=== PATIENT | male | born 1945 | race Caucasian/White ===

== ENCOUNTER 2018-04-07 08:11 | Emergency (ER) | payer OTHER ==
[~2018-04-07] VITALS: Ht 165.1 cm; Wt 52.6 kg
[2018-04-07] MEDS ORDERED: ZINC SULFATE 2220 M1 PER TUBE (08:27)
[2018-04-07] MEDS ORDERED: LIPITOR10 MG PER TUBE (08:28)
[2018-04-07] MEDS ORDERED: AUGMENTIN400 MG/53 PER TUBE (08:31)
[2018-04-07] MEDS ORDERED: OMEPRAZOLE20 M2 PER TUBE (08:31)
[2018-04-07] MEDS ORDERED: LOPRESSOR50 PER TUBE (08:32)
[2018-04-07] MEDS ORDERED: CEROVITE ADVAN1 EACH PER TUBE (08:32)
[2018-04-07 09:45] VITALS: BP 139/43
== END 2018-04-07 09:46 | disposition home or self-care (01) ==
LOC: M.ERS 08:11
DX: K94.20 Gastrostomy complication, unspecified (principal)

== ENCOUNTER 2018-04-22 18:19 | Observation (INO) | payer OTHER ==
[~2018-04-22] VITALS: Ht 172.7 cm; Wt 55.3 kg
--- NOTE | ~2018-04-22 | CON ---
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 The patient reports he has had dysphagia and is unable to keep secretions down. He uses the PEG tube for nutrition. The tube was initially placed in December, although the patient is unsure what kind of tube it is. The patient reports mild oozing of blood from the PEG tube site. He denies any significant abdominal pain, nausea, vomiting or diarrhea. PEG tube appears to have been placed back in 12/2017. PAST MEDICAL HISTORY: Squamous cell cancer of the tongue, COPD, AFib, history of bladder cancer. PAST SURGICAL HISTORY: Oropharyngeal surgery for SCC of the tongue and tube placement. SOCIAL HISTORY: The patient quit smoking more than one year back. He reports daily alcohol use and takes about 1 drink per day, denies recreational drug use. REVIEW OF SYSTEMS: Negative except for what was mentioned in the HPI. PHYSICAL EXAMINATION: VITAL SIGNS: Temperature 37.7, pulse rate 72, respirations 16, blood pressure 129/59, pulse ox 95%. GENERAL: The patient is alert, awake, oriented x 3. HEENT: Pupils are equal, round, reactive to light and accommodation. Mucous membranes appear very dry. The patient is drooling from his mouth, appears cachectic. HEART: Irregularly irregular rhythm. LUNGS: Clear to auscultation bilaterally. ABDOMEN: Soft. There appears to be a small defect in the anterior wall of the abdomen corresponding to the previously placed PEG tube placement. The PEG tube site appears to have completely closed by this time, very small amount of red blood is seen in that area. There is no tenderness or guarding or rigidity. EXTREMITIES: Warm, well perfused. There is no edema. LABORATORY DATA: Hemoglobin 11.3, hematocrit 35.1, platelet count 187, WBC count 6.8. Sodium 140, potassium 4.1, chloride 108, bicarbonate 28, BUN 31, creatinine 0.9. ASSESSMENT AND PLAN: A pleasant 73-year-old gentleman [place] [address] CONSULTATION Name: CHACHO CORMIER Wilber IV Room: [address] B[place]y Bragg#: [id number] Admission: 04/22/18 Attend Phys: eJsus Gonzalez MD Discharge: 04/26/18 Date of : 49 Report #: [id number] of oropharyngeal squamous cell cancer who is presenting for evaluation of dislodged PEG tube. The PEG tube has been gone for more than 24 hours and thus the PEG tube site appears to be completely closed at this time. The patient will need a brand new PEG tube placement. We will attempt endoscopically to place a PEG tube on Wednesday; however, this may be difficult because of his prior history of surgery as well as radiation therapy, which can cause narrowing of the oropharyngeal area. Thank you for this consult. By: [id number] [id number] Boyd MD /nt
--- NOTE | ~2018-04-22 | CON ---
[address] [address] CONSULTATION Name: CHACHO CORMIER IV Room: [address] Betsy Bragg#: [id number] Admission: 04/22/18 Attend Phys: Jesus Gonzalez MD Discharge: 04/26/18 Date of : 49 Report #: [id number] THIS REPORT FOR: //name// CC: Jesus AMOR DATE OF SERVICE: 04/24/2018 HISTORY OF PRESENT ILLNESS: This is a pleasant 73-year-old male with a squamous cell cancer of the back of the tongue who was diagnosed and treated at , was presented for dislodgement of his PEG tube. The patient was initially diagnosed about 5 months back and had surgery. Prior to that, he had a PEG tube placed to assist with enteral nutrition. The patient also received radiation to the head and neck and currently is mostly edentulous and does not take anything p.o. because of risk of aspiration. The patient reports his tube fell out last evening and he presented to the hospital several hours later. The patient denies any abdominal pain or bleeding around the PEG site. He denies having the PEG tube taken out in the past. PAST MEDICAL HISTORY: SCC of the tongue, COPD, atrial fibrillation, history of bladder cancer. PAST SURGICAL HISTORY: Head and neck surgery for the SCC. SOCIAL HISTORY: The patient has a [id number] smoking history, but he quit about 1 year back. The patient also reports daily alcohol use. He drinks about 1-2 drinks per day and denies any recreational drug use. FAMILY HISTORY: There is no family history of esophageal, gastric, or colonic or upper respiratory tract malignancies. REVIEW OF SYSTEMS: Negative except for what was mentioned in the HPI. PHYSICAL EXAMINATION: VITAL SIGNS: Temperature 37.0, pulse rate 88, respirations 17, blood pressure 130/58. GENERAL: The patient is alert, awake, oriented x 3. HEENT: Pupils are equal, round, reactive to light and accommodation. Mucous membranes appear dry. The patient is edentulous. Thick secretions covered most of his oropharynx. LUNGS: Clear to auscultation bilaterally. CARDIOVASCULAR: Irregularly irregular. ABDOMEN: Soft. The PEG tube site appears to have been completely closed. Very small amount of dried blood is there at the site at this point. No tenderness or guarding. EXTREMITIES: Warm, well perfused[place] [address] CONSULTATION Name: CASACHACHO IV Room: [address]#: [id number] Admission: 04/22/18 Attend Phys: Jesus Gonzalez MD Discharge: 04/26/18 Date of : 49 Report #: [id number] LABORATORY DATA: Hemoglobin 11.3, hematocrit 35.1, platelet count 187. Sodium 139, potassium 3.7, chloride 106, bicarbonate 23. Total bilirubin 0.4, AST 41, ALT 113, alkaline phosphatase 91. Abdomen and pelvis CT: This demonstrates right kidney mass concerning for malignancy, complex anterolateral right kidney mass measuring 3.2 x 3.1 cm, old compression fractures, left adrenal mass, gastric wall thickening. ASSESSMENT AND PLAN: Pleasant 73-year-old gentleman with past medical history of oropharyngeal cancer status post surgery, radiation therapy who previously had a percutaneous endoscopic gastrostomy tube placed to assist with enteral nutrition. The patient has severe dysphagia and takes most of his nutrition through his percutaneous endoscopic gastrostomy tube and needs it for nutrition. The patient is unable to tell us if he had initial percutaneous endoscopic gastrostomy tube placed via Gastroenterology or Radiology. We will attempt to place endoscopically the percutaneous endoscopic gastrostomy tube. However, patients with oropharyngeal cancer frequently have stenosis of the upper respiratory tract due to radiation and this may interfere with passage of the scope or the percutaneous endoscopic gastrostomy tube. We can have Interventional Radiology place the tube if we are unable to place the tube endoscopically. By: 1733 [id number] Boyd MD /andre
[~2018-04-22 18:19] MED LIST: AUGMENTIN400 MG/53 PER TUBE; CEROVITE ADVAN1 EACH PER TUBE; LIPITOR10 MG PER TUBE; LOPRESSOR50 PER TUBE; OMEPRAZOLE20 M2 PER TUBE; ZINC SULFATE 2220 M1 PER TUBE
[2018-04-22 18:20] VITALS: BP 118/70
[2018-04-22] MEDS ORDERED: LOPRESSOR50 PO (18:28)
[2018-04-22] MEDS ORDERED: ZINC SULFATE 2220 MG PER TUBE (18:29)
[2018-04-22] MEDS ORDERED: OMEPRAZOLE 20 M20 M1 PO (18:29)
[2018-04-22] MEDS ORDERED: AMOXIL 875 MG875 M1 PER TUBE (18:32)
--- NOTE | 2018-04-22 18:39 | NUR ---
G TUBE DISLODGED AND OUT
[2018-04-22 19:51] LABS: HEMATOCRIT 35.1 % (42.0-52.0); HEMOGLOBIN 11.3 gm/dL (14.0-18.0); MCH 31.2 pg (26.0-34.0); MCHC 32.3 g/dL (28.0-37.0); MCV 96.5 fL (80.0-100.0); MPV 9.4 fl. (7.2-11.1); NUCLEATED RBCS 0 /100WBC; PLATELET COUNT* 187 thou/uL (150-400); RBC 3.64 mil/uL (4.50-6.00); RDW-CV 16.5 % (10.5-14.5); WBC 6.8 thou/uL (4.0-11.0)
[2018-04-22 20:07] LABS: CALCIUM 8.5 mg/dL (8.5-10.1); POTASSIUM 4.5 mmol/L (3.5-5.1)
[2018-04-22 20:08] LABS: APTT 29.6 Seconds (25.0-31.3); INR 1.1; PROTIME 10.9 Seconds (9.20-11.50)
[2018-04-22 20:11] LABS: ALBUMIN 2.9 g/dL (3.4-5.0); TOTAL BILIRUBIN 0.2 mg/dL (<0.1-1.0); TOTAL PROTEIN 6.6 g/dL (6.4-8.2)
[2018-04-22 20:46] LABS: ABSOLUTE EOSINOPHILS 1.2 thou/uL (0.0-0.7); ABSOLUTE MONOCYTES 0.3 thou/uL (0.0-1.2); ABSOLUTE NEUTROPHILS 4.4 thou/uL (1.6-8.1); ATYPICAL LYMPHS 4 %; PLATELET ESTIMATE ADEQUATE
--- NOTE | 2018-04-22 21:05 | NUR ---
TAYLOR NOTIFIED UPON PT RETURN FROM CT.PT CONNECTED TO BP AND PULSE OX HE WAS PRIOR TO GOING TO CT
[2018-04-22 21:30] VITALS: BP 134/84
[2018-04-22 21:38] LABS: URINE BILIRUBIN NEGATIVE (Negative); URINE BLOOD NEGATIVE (Negative); URINE CLARITY CLEAR; URINE COLOR YELLOW; URINE GLUCOSE-RANDOM NEGATIVE (Negative); URINE KETONES NEGATIVE (Negative); URINE LEUKOCYTES-REFLEX NEGATIVE (Negative); URINE NITRITE-REFLEX NEGATIVE (Negative); URINE PROTEIN NEGATIVE (Negative); URINE UROBILINOGEN 0.2 E.U./dl (0.2-1.0)
[2018-04-23] VITALS: BP 100/37
[2018-04-23] MEDS ORDERED: LIPITOR10 MG PO (03:39)
[2018-04-23] MEDS ORDERED: CENTRUM SILVER1 EAC4 PO (03:41)
--- NOTE | 2018-04-23 04:43 | NUR ---
PT ARRIVED FROM ER AROUND 2129. ASSESSMENT COMPLETED CHARTED. NO C/O PAIN OR DISCOMFORT. PT RESTING IN BED AT THIS TIME, USING URINAL NEEDED. ABLE TO MAKE NEEDS KNOWN. IVF INFUSING PER P.O. NPO AND USED TO HAVE G TUBE THAT WAS TAKEN OUT DOWN IN ER. HERE TO GET NEW ONE PUT IN BY IR. WILL CONTINUE TO MONITOR.
[2018-04-23 07:46] LABS: CALCIUM 7.5 mg/dL (8.5-10.1); CREATININE 0.9 mg/dL (0.6-1.3); MAGNESIUM 2.1 mg/dL (1.8-2.4); POTASSIUM 4.1 mmol/L (3.5-5.1)
[2018-04-23 16:00] VITALS: BP 129/59
--- NOTE | 2018-04-23 18:22 | NUR ---
PT VSS THSI SHIFT. PT IS STRICT NPO DUE TO PREVIOUS HX ISSUES. PT G TUBE OUT AND IS RUKHSANA. DR SHRESTHA ROUNDED ON PT AND STATED THAT HE WOULD HAVE TO REPLACE THE TUBE ON TUESDAY 04/25. PT PROVIDED WITH GAUZE FOR ORAL SECREATIONS AND ORAL SWABS. WILL TAKE PT MEDICATIONS DOWN TO RX AT THE END OF THE SHIFT. PT PROVIDED WITH FENTANYL FOR PAIN CONTROL THIS SHIFT.
[2018-04-23 19:45] VITALS: BP 141/52
--- NOTE | 2018-04-24 05:26 | NUR ---
RECEIVED REPORT AND ASSUMED CARE AT 1900. VSS. PT DENIES COMPLAINTS OF PAIN. ASSESSMENT COMPLETED CHARTED. PT UP WITH ASSIST 1-2 WITH WALKER. ON RA. BED LOCKED IN LOWEST POSITION, CALL LIGHT WITHIN REACH, BED ALARM ON. DISCUSSED PLAN OF CARE WITH PT, VERBALIZED UNDERSTANDING. HOURLY ROUNDING COMPLETED. ALL NEEDS MET.
[2018-04-24 09:10] VITALS: BP 124/61
[2018-04-24 16:11] VITALS: BP 132/58
--- NOTE | 2018-04-24 18:00 | NUR ---
PATIENT RESTING IN BED. PATIENT DENIES ANY PAIN. PATIENT REMAINED NPO. IVF INFUSING. EGD WITH PEG TUBE PLACEMENT SCHEDULED FOR TOMORROW. PATIENT DENIES ANY NEEDS AT THIS TIME. CALL LIGHT WITHIN REACH. WILL CONTINUE TO MONITOR.
[2018-04-24 20:00] VITALS: BP 130/62
--- NOTE | 2018-04-25 04:56 | NUR ---
ASSUMED PT CARE AT APPROX 1930. PT AWAKE AND ORIENTED X4. VSS ON ROOM AIR. NOT IN DISTRESS. FOR EGD WITH PEG PLACEMENT ON 04/25/18. MAINTANED ON NPO. STILL TO SIGN CONSENT. HOURLY ROUNDING DONE FOR PT SAFETY. CALL LIGHT WITHIN REACH. FALL PRECAUTIONS IN PLACE.
[2018-04-25 05:20] LABS: ALBUMIN 2.4 g/dL (3.4-5.0); CREATININE 0.7 mg/dL (0.6-1.3); MAGNESIUM 1.9 mg/dL (1.8-2.4); POTASSIUM 3.7 mmol/L (3.5-5.1); TOTAL BILIRUBIN 0.4 mg/dL (<0.1-1.0); TOTAL PROTEIN 5.8 g/dL (6.4-8.2)
[2018-04-25 09:11] VITALS: BP 130/62
[2018-04-25 09:30] VITALS: BP 128/58
--- NOTE | 2018-04-25 14:21 | EKG ---
[place] [address] ELECTROCARDIOGRAM REPORT Name: CASACHACHO Merino IV Room: [address]R.#: [id number] Admission: 04/22/18 Attend Phys: Jesus Gonzalez MD Discharge: 04/26/18 Date of : 49 Report #: [id number] THIS REPORT FOR: //name// [facility] Test Date: 2018-04-25 Test Time: 08:17:08 Pat Name: CHACHO CORMIER Department: Room: [address] Gender: M Special Education Paraprofessional: FORTINO : 1945 Requested By: Damian Boyd Order Number: [id number] Lisa MD: Toni Angel Measurements Intervals [place] Rate: 86 P: 54 [place]: 156 QRS: -30 QRSD: 94 T: 32 QT: 355 QTc: 425 Interpretive Statements Sinus rhythm Atrial premature complexes in couplets Left axis deviation No previous ECG available for comparison Electronically Signed On 04-25-2018 14:21:28 TRADING ASSISTANT by Toni Angel [email or web address] <ELECTRONICALLY SIGNED> By: Toni Angel MD, [facility] 04/25/18 1421 6 6 Toni Angel MD, FAC /EPI
[2018-04-25 16:34] VITALS: BP 124/53
--- NOTE | 2018-04-25 19:52 | NUR ---
ASSUMED CARE OF PT AT 0700. PT RESTING IN BED THIS AM, IR PLACED NEW 18G PEG TUBE. PT IN ROOM, /BROWN MESSAGED THROUGH INGRID CHEN. MESSAGE WAS RECEIVED BUT NO NEW ORDERS AT THIS TIME.
[2018-04-26 03:55] VITALS: BP 137/80
--- NOTE | 2018-04-26 04:05 | NUR ---
ASSUMED PT CARE AT 1920. NURSING ASSESSMENT COMPLETED AT START OF SHIFT. PT VOICED FEELING HUNGRY AND REQUESTED PEG TUBE FEEDINGS. DR. DASILVA NOTIFIED, NO NEW ORDERS AT THIS TIME. IV FLUIDS INFUSING, PRN PAIN MEDICATION ADMINISTERED, SEE EMAR FOR DOCUMENTATION. CALL LIGHT REMAINS WITHIN REACH.
[2018-04-26 08:15] VITALS: BP 151/63
--- NOTE | 2018-04-26 10:59 | NUR ---
SPOKE TO THE PATIENT AND HIS DTR TO DISCUSS HIS HOME SITUATION, DISCHARGE PLANNING, AND TO INFORM OF THE ROLE OF CM. PATIENT RESIDES AT HOME WITH HIS DTR, AND SHE ASSIST HIM WITH CARES AND TUBE FEEDINGS NEEDED. PATIENT INDEPENDENT WITH ADL'S AND ABLE TO DO LITE COOKING AT CLEANING. PATIENT USES A WALKER FOR MOBILITY. PATIENT IS CURRENT WITH [facility] FOR NURSING ONLY. PATIENT HAS NO HX OF SNF AND PLANS TO RETURN HOME AT D/C. RN IN-CHARGE OF PATIENT INFORMS THAT THE PATIENT WILL D/C HOME TODAY. PATIENT'S DTR WILL PROVIDE TRANSPORTATION. D/C SLOT EDITOR SPOKE TO PIPER WITH [facility] TO INFORM OF THE PATIENT'S D/C AND FAXED THE PATIENT'S FACESHEET, H&P, AND D/C ORDERS. CM WILL REMAIN AVAILABLE TO ASSIST AND FOLLOW NEEDED.
[2018-04-26 11:34] VITALS: BP 151/63
[2018-04-26 11:40] VITALS: BP 108/55
[2018-04-26 11:46] VITALS: BP 151/63
--- NOTE | 2018-04-26 14:00 | NUR ---
PATIENT DISCHARGED TO HOME WITH HOME HEALTH. DISCHARGE PAPERS REVIEWED AND SIGNED. NO PRESCRIPTIONS. IV REMOVED. PATIENT GIVEN TUBE FEED THIS AM AND TOLERATED WELL. PATIENT DENIES ANY FURTHER NEEDS AT THIS TIME. PATIENT TAKEN BY WHEELCHAIR TO EXIT. LEFT WITH DAUGHTER.
== END 2018-04-26 12:50 | disposition home health service (06) ==
LOC: M.ERS 18:19 → M.3W 20:05 → M.TBA-ER 20:05 → M.3W 23:09
PROVIDERS: Nurse Practitioner Family; ADMIT Internal Medicine
DX: T85.528A Displacement of other gastrointestinal prosthetic devices, implants and grafts, initial encounter (principal); C02.1 Malignant neoplasm of border of tongue; E43 Unspecified severe protein-calorie malnutrition; I48.91 Unspecified atrial fibrillation; R13.10 Dysphagia, unspecified; C64.9 Malignant neoplasm of unspecified kidney, except renal pelvis; R91.8 Other nonspecific abnormal finding of lung field; J44.9 Chronic obstructive pulmonary disease, unspecified; Z87.891 Personal history of nicotine dependence; Z79.899 Other long term (current) drug therapy

== ENCOUNTER 2018-07-20 00:26 | Inpatient (IN) | payer OTHER ==
[2018-07-20] VITALS (10 sets, daily range): BP systolic 87–147; BP diastolic 37–86
[~2018-07-20] VITALS: Ht 172.7 cm; Wt 68.9 kg
[~2018-07-20 00:26] MED LIST changes: +AMOXIL 875 MG875 M1 PER TUBE; +CENTRUM SILVER1 EAC4 PO; +LIPITOR10 MG PO; +LOPRESSOR50 PO; +OMEPRAZOLE 20 M20 M1 PO; +ZINC SULFATE 2220 MG PER TUBE
[2018-07-20 00:58] LABS: ABSOLUTE BASOPHILS 0.1 thou/uL (0.0-0.2); ABSOLUTE EOSINOPHILS 0.2 thou/uL (0.0-0.7); ABSOLUTE LYMPHOCYTES 0.8 thou/uL (0.8-5.3); ABSOLUTE MONOCYTES 0.6 thou/uL (0.0-1.2); BASOPHILS 0.8 %; EOSINOPHILS 2.6 %; HEMATOCRIT 35.9 % (42.0-52.0); HEMOGLOBIN 11.6 gm/dL (14.0-18.0); MCH 30.6 pg (26.0-34.0); MCHC 32.2 g/dL (28.0-37.0); MONOCYTES 5.7 %; MPV 9.1 fl. (7.2-11.1); NUCLEATED RBCS 0 /100WBC; PLATELET COUNT* 225 thou/uL (150-400); POLYS 82.9 %; RBC 3.78 mil/uL (4.50-6.00); RDW-CV 16.1 % (10.5-14.5); WBC 9.6 thou/uL (4.0-11.0)
[2018-07-20 01:13] LABS: CALCIUM 8.5 mg/dL (8.5-10.1); POTASSIUM 4.4 mmol/L (3.5-5.1)
[2018-07-20 01:24] LABS: ALBUMIN 2.9 g/dL (3.4-5.0); TOTAL BILIRUBIN 0.2 mg/dL (<0.1-1.0); TOTAL PROTEIN 6.5 g/dL (6.4-8.2)
[2018-07-20] MEDS ORDERED: EXCEDRIN CAPLE1 EACH PER TUBE (01:52)
[2018-07-20 02:02] LABS: INR 1.1; PROTIME 10.9 Seconds (9.20-11.50)
--- NOTE | 2018-07-20 07:53 | NUR ---
PT ADMITTED TO ROOM 214 DURING THIS SHIFT; VSS, A+OX4, 2LO2 NC, RIGHT LEG IN SPLINT/TRACTION DUE TO COMPLETE FRACTURE; DEVICE NOT REMOVED, SAVING FOR ORTHO SURGERY TO SEE HIM. HE IS ABLE TO COMMUNICATE HIS NEEDS TO STAFF EFFECTIVELY. CURRENT PAIN MEDICATION REGIMEN HAS BEEN ADEQUATE FOR CONTROLLING HIS PAIN UP TO THIS TIME.
--- NOTE | 2018-07-20 10:07 | NUR ---
Pt out of the room, CM to assess later
--- NOTE | 2018-07-20 10:51 | EKG ---
[place] [address] ELECTROCARDIOGRAM REPORT Name: CHACHO CORMIER IV Room: [address] ADM IN .R.#: [id number] Admission: 07/20/18 Attend Phys: Jesus Gonzalez MD Discharge: Date of : 49 Report #: [id number] THIS REPORT FOR: //name// [facility] ED Test Date: 2018-07-20 Test Time: 01:33:39 Pat Name: CHACHO CORMIER Department: Room: [facility] Gender: M Custom Protection Officer: ZAC : 1945 Requested By: Marcus Berg Order Number: [id number] MD: Bar Jose Measurements Intervals [place] Rate: 144 P: 56 [place]: 183 QRS: -16 QRSD: 75 T: 39 QT: 317 QTc: 491 Interpretive Statements Sinus tachycardia with pac's Ventricular tachycardia, unsustained Borderline left axis deviation Borderline low voltage, extremity leads Anteroseptal infarct, old Compared to ECG 04/25/2018 08:17:08 Ventricular tachycardia now present Sinus rhythm no longer present Electronically Signed On 07-20-2018 10:51:22 CDT by Bar Jose [email or web address] <ELECTRONICALLY SIGNED> By: Bar Jose MD, [facility] 07/20/18 1051 0133 0133 Bar Jose MD, FAC /EPI
--- NOTE | 2018-07-20 13:55 | NUR ---
Pt is out of the room at surgery. Per nurse, Pt is current on hospice, CM will attempt to assess later
[2018-07-20 15:30] LABS: HEMATOCRIT 20.7 % (42.0-52.0)
[2018-07-20 15:33] LABS: HEMOGLOBIN 6.5 gm/dL (14.0-18.0)
--- NOTE | 2018-07-20 16:00 | NUR ---
ASSUMED PT CARE AT 0730, AOX4, BEDREST. PT O2 SAT AT 90'S RA. TRACING SR ON SKILLS TRAINER. ROE CATH INSERTED. PT HAS R FEMUR FRACTURE. PT COMPLAINS OF PAIN. PAIN MEDS GIVEN PER MAY.PT LUNG SOUND COARSE. IV ACCESS ON R FOREARM. PEDAL PULSE MONITOR. PT ON NPO. PT HAS PEG TUBE. PT WENT FOR SURGERY 1145 . TRANSFER TO ICU AROUND. GIVEN REPORT TO ICU NURSE. WILL CONTINUE TO MONITOR
[2018-07-20 18:20] LABS: URINE BILIRUBIN NEGATIVE (Negative); URINE BLOOD NEGATIVE (Negative); URINE CLARITY CLEAR; URINE COLOR YELLOW; URINE GLUCOSE-RANDOM NEGATIVE (Negative); URINE KETONES NEGATIVE (Negative); URINE LEUKOCYTES-REFLEX NEGATIVE (Negative); URINE NITRITE-REFLEX NEGATIVE (Negative); URINE PROTEIN NEGATIVE (Negative); URINE SPECIFIC GRAVITY >= 1.030 (1.005-1.030); URINE UROBILINOGEN 0.2 E.U./dl (0.2-1.0)
--- NOTE | 2018-07-20 18:22 | NUR ---
PT TRANSFERED FROM SURGERY VIA TELE UNIT AFTER R HIP REPAIR WITH SOFT BP. 1 U PRBC STARTED PER ORDER FOR DECREASED HGB. PT WITH PEG TUBE. 1 BOX JEVITY 1.5 GIVEN BOLUS WITH 200 ML H2O PER ORDERS. IVF INFUSING. BHUPINDER TO EMELI. SR ON MONITOR.
[2018-07-20 20:51] LABS: HEMOGLOBIN 8.3 gm/dL (14.0-18.0)
[2018-07-21] VITALS (58 sets, daily range): BP systolic 90–134; BP diastolic 26–54
[2018-07-21 05:04] LABS: ABSOLUTE LYMPHOCYTES 0.4 thou/uL (0.8-5.3); ABSOLUTE MONOCYTES 0.9 thou/uL (0.0-1.2); ABSOLUTE NEUTROPHILS 6.6 thou/uL (1.6-8.1); BASOPHILS 0.1 %; LYMPHOCYTES 4.9 %; MCH 31.2 pg (26.0-34.0); MCHC 33.3 g/dL (28.0-37.0); MCV 93.6 fL (80.0-100.0); MONOCYTES 11.6 %; MPV 9.5 fl. (7.2-11.1); NUCLEATED RBCS 0 /100WBC; POLYS 83.4 %; RBC 2.14 mil/uL (4.50-6.00); RDW-CV 16.8 % (10.5-14.5); WBC 7.9 thou/uL (4.0-11.0)
[2018-07-21 05:11] LABS: CALCIUM 6.9 mg/dL (8.5-10.1); CREATININE 0.9 mg/dL (0.6-1.3); MAGNESIUM 2.1 mg/dL (1.8-2.4); POTASSIUM 4.9 mmol/L (3.5-5.1)
[2018-07-21 05:18] LABS: PLATELET COUNT* 121 thou/uL (150-400)
[2018-07-21 05:19] LABS: HEMOGLOBIN 6.7 gm/dL (14.0-18.0)
--- NOTE | 2018-07-21 06:33 | NUR ---
BP SOFT AT TIMES, CURRENTLY AT 100/45 WITH MAP 64. HGB THIS AM 6.7, A UNIT OF BLOOD ORDERED AND BEING PREPARED. TRIED TO HOLD METOPROLOL FOR SOFT BP LAST NIGHT, HR NOT TOLERATING WITH 90s-100s, DOSE GIVEN PER TUBE ORDERED WITH IMPROVED HR. HR CURRENTLY 74 AND NSR ON THE MONITOR. PAIN MED X1 PER PATIENT'S REQUEST WITH COMPLETE RELIEF. RIGHT LEG WITH MINIMAL SWELLING, NO CHANGE IN SWELLING, COLOR, WARMTH FROM BEGINNING OF SHIFT. PATIENT MOST COMFORTABLE IN SEMIFOWLERS POSITION, NOT REPOSITIONED THROUGH THE NIGHT. PATIENT'S SPEECH HARD TO UNDERSTAND, ABLE TO COMMUNICATE BY WRITING USING PEN AND PAPER. ABLE TO PROPERLY USE CALL LIGHT. DAUGHTER UPDATED ON PATIENT'S CLINICAL STATUS.
--- NOTE | 2018-07-21 11:21 | NUR ---
PATIENT REMAINS A&O X 4. PLEASANT AND COOPERATIVE WITH CARES. C/O PAIN TO RLE AND RLQ, PAIN MEDICATIONS HELP. PATIENT SLEEPS A LOT AND SEEMS TO BE COMFORTABLE. PATIENT REFUSES TO TURN, PATIENT WAS EDUCATED ON THE INCREASED RISK OF DEVELOPING PRESSURE ULCERS, PATIENT ALLOWED ME TO REPOSITION HIS BOTTOM BUT THAT IS IT. PATIENT'S DAUGHTER CALLED TO CHECK ON PATIENT THIS AM STATIGN THAT THEY MIGHT COME UP TOMORROW BUT WAS UNSURE. 1 UNIT OF BLOOD GIVEN FOR HGB OF 6.7, PATIENT TOLERATED IT WELL. AWAITING RESULTS OF UPDATED HH. NO FURHTER CONCERNS AT THIS TIME. WILL CONTINUE TO MONITOR AND CARE PER PLAN OF CARE.
[2018-07-21 13:23] LABS: HEMATOCRIT 24.2 % (42.0-52.0); HEMOGLOBIN 8.1 gm/dL (14.0-18.0)
--- NOTE | 2018-07-21 14:13 | NUR ---
NO FAMILY IN ROOM EARLIER. PT ADMITTED YESTERDAY AFTER FALL AT HOME, HAD ORIF OF RIGHT FEMUR FRACTURE YESTERDAY. PT IS ON SERVICE WITH [facility], NURSE FROM HOSPICE HERE EARLIER. CASE MGT WILL CONTACT FAMILY.
--- NOTE | 2018-07-21 14:49 | EKG ---
[place] [address] ELECTROCARDIOGRAM REPORT Name: CHACHO CORMIER IV Room: [address] ADM IN M.R.#: [id number] Admission: 07/20/18 Attend Phys: Jesus Gonzalez MD Discharge: Date of : 49 Report #: [id number] THIS REPORT FOR: //name// [facility] Test Date: 2018-07-21 Test Time: 08:47:06 Pat Name: CHACHO CORMIER Department: Room: [facility] Gender: M Quality Reviewer: [facility] : 1945 Requested By: Bar Jose Order Number: [id number] Lisa MD: Leif Valdes Measurements Intervals [place] Rate: 71 P: 77 [place]: 160 QRS: 0 QRSD: 87 T: 55 QT: 408 QTc: 444 Interpretive Statements Sinus rhythm Premature atrial contractions Low voltage, precordial leads Compared to ECG 07/20/2018 01:33:39 Sinus tachycardia no longer present Ventricular tachycardia no longer present Myocardial infarct finding no longer present Electronically Signed On 07-21-2018 14:49:48 CDT by Leif Valdes [email or web address] <ELECTRONICALLY SIGNED> By: Leif Valdes MD, FAC 07/21/18 1449 0847 0847 Leif Valdes MD, [facility] /EPI
--- NOTE | 2018-07-21 18:05 | CON ---
[address] [address] CONSULTATION Name: CHACHO CORMIER IV Room: [address] IN .R.#: [id number] Admission: 07/20/18 Attend Phys: Jesus Gonzalez MD Discharge: Date of : 49 Report #: [id number] THIS REPORT FOR: //name// CC: Jesus AMOR DATE OF SERVICE: 07/20/2018 CARDIOLOGY CONSULTATION HISTORY OF PRESENT ILLNESS: The patient is a 73-year-old single white male who I was asked to see in the hospital today after he was noted to have an abnormal electrocardiogram. The patient has an extensive past medical history. Unfortunately, none of his old records are available. He was admitted to the hospital in April after he dislodged his G-tube. He has a history of tongue squamous cell carcinoma with bone invasion, stage IV and he has been under hospice. He has a history of renal cell carcinoma as well. He currently is under hospice. The patient yesterday apparently fell out of bed after using his walker. He complained of leg pain. He was found to have a fracture. He is scheduled for surgery today. Because of the abnormal ECG, cardiology consultation was requested. PAST MEDICAL HISTORY: He has had a history of hypertension. He has had previous hernia surgery. He apparently has had previous hip surgery. MEDICATIONS: On admission consists of metoprolol, atorvastatin, omeprazole, Lipitor. ALLERGIES: He has no known drug allergies. FAMILY HISTORY: Negative for heart disease. SOCIAL HISTORY: He is . Lives with brother in [place], [place]. He denies illicit drug use. Quit smoking in the past. No alcohol abuse. REVIEW OF SYSTEMS: He has had no history of stroke, asthma, liver disease or chronic skin condition. PHYSICAL EXAMINATION: GENERAL: Revealed an elderly, frail-appearing male, lying in bed, appeared in no acute distress. VITAL SIGNS: He had a blood pressure of 120/60, pulse is 100. He is afebrile. HEENT: He is anicteric. Conjunctivae pale. Mucous membranes were dry. NECK: Neck veins do not appear distended. CHEST: Clear to auscultation. CARDIOVASCULAR: Regular rate and occasional pre[place] [id number] CONSULTATION Name: CHACHO CORMIER IV Room: [address]#: [id number] Admission: 07/20/18 Attend Phys: Jesus Gonzalez MD Discharge: Date of : 49 Report #: [id number]. ABDOMEN: Soft. EXTREMITIES: Had no edema. SKIN: Cool and dry. NEUROLOGIC: Nonfocal. LYMPHATIC: No adenopathy. MUSCULOSKELETAL: No joint effusion. RADIOLOGICAL DATA: His ECG on admission showed sinus tachycardia with frequent PACs, no significant ST or T-wave change. His workup in the Emergency Room yesterday, he had portable chest x-ray that showed left lung infiltrate. LABORATORY DATA: Sodium 138, creatinine 1.0, albumin 2.9. White blood cell count 9.6, hemoglobin 11.6. IMPRESSION AND RECOMMENDATIONS: 1. Frequent premature atrial contractions. I find no evidence of atrial fibrillation. I would check thyroid function studies. I would continue his beta shanel. 2. Hypertension. The patient has been on beta shanel. 3. History of renal cell carcinoma. 4. History of carcinoma of the tongue with bone invasion. 5. Difficulty swallowing. The patient has a PEG tube in place. 6. Hip fracture. The patient is scheduled for surgery. The patient appears to have no cardiac contraindication to hip surgery. <ELECTRONICALLY SIGNED> By: Bar Jose MD, FACC 07/21/18 1805 1113 2106Dapablo Jose MD, FACC /nt
--- NOTE | 2018-07-21 22:26 | NUR ---
UNABLE TO READ SPO2 AT THIS TIME. PATIENT INCREASED FROM 12L PER NC TO HIGH FLOW 10L FOR SPO2 AT 85-88%. PATIENT GOES INTO EXTREME TACHYCARDIA, BUT DOES NOT SUSTAIN. LASTED ABOUT 30-45 MINS, CARDIOLOGY NORIFIED. PRN METOPROLOL ORDERED FOR HR GREATER THAN [address] DASILVA AT BEDSIDE, ABG AND H$H ORDERED STAT. BENADRYL GIVEN FOR COMFORT. PATIENT SEEMS TO BE INCREASINGLY UNCOMFORTABLE, SEEMS TO BE CONFUSED, ASKS TO GO TO HIS ROOM. EDUCATION PROVIDED.
[2018-07-21 23:03] LABS: HEMATOCRIT 23.5 % (42.0-52.0); HEMOGLOBIN 7.8 gm/dL (14.0-18.0)
[2018-07-22] VITALS (33 sets, daily range): BP systolic 63–153; BP diastolic 29–83
--- NOTE | 2018-07-22 05:40 | NUR ---
LEVOPHED GTT STARTED FOR BLOOD PRESSURE SUPPORT, RUNNING AT 5 MCG/MIN AT THIS TIME. HR STAYING ABOVE 110 BPM AND GOING TO EXTREME TACHYCARDIA AT TIMES, PRN METOPROLOL ORDRED PER CARDIOLOGY, TO BE GIVEN IF HR SUSTAINING AROUND 170. ADMINISTERED X1 THIS SHIFT. 1 UNIT PRBC ADMINISTERED PER DR. DASILVA, HE WOULD LIKE TO KEEP HGB ABOVE 8. PATIENT REFUSES TO BE TURNED, ABLE TO USE CALL LIGHT.
[2018-07-22 06:25] LABS: HEMATOCRIT 28.3 % (42.0-52.0); HEMOGLOBIN 9.6 gm/dL (14.0-18.0)
--- NOTE | 2018-07-22 11:18 | OP ---
[address] [address] OPERATIVE REPORT Name: CHACHO CORMIER IV Room: [address] IN [facility]#: [id number] Admission: 07/20/18 Attend Phys: Jesus Gonzalez MD Discharge: Date of : 49 Report #: [id number] THIS REPORT FOR: //name// CC: Jesus AMOR DATE OF SERVICE: 07/20/2018 Sukhwinder Enamorado DO, dictating for Dr. Abelino Bahena. PREOPERATIVE DIAGNOSIS: Right displaced subtrochanteric femur fracture. POSTOPERATIVE DIAGNOSIS: Right displaced subtrochanteric femur fracture. PROCEDURE PERFORMED: Open reduction and internal fixation of a right subtrochanteric femur fracture with cephalomedullary nail with near anatomic reduction. IMPLANTS: 1. uberall gamma 3 long nail system was utilized with a long nail size 11 diameter x mm x 125 angulation. 2. 95 mm lag screw. 3. 50 mm distal interlock. 4. 45 mm static interlock. OPERATING SURGEON: Abelino Bahena DO. WORKFORCE DEVELOPMENT PROGRAM DIRECTOR: Sukhwinder Enamorado DO ANESTHESIA: General endotracheal anesthetic. ANTIBIOTICS: 2 grams of Ancef given IV preoperatively. ESTIMATED BLOOD LOSS: 500 mL. COMPLICATIONS: None. CONDITION: Stable, transferred to PACU. INDICATIONS FOR PROCEDURE: The patient is a pleasant 73-year-old male who has a long medical history consisting of cancer as well as malnutrition. He subsequently states that he was ambulating and fell at the ground-level fall and landed on right hip. He had immediate onset of pain and inability to bear weight on the right lower extremity and subsequently presented to [facility] Emergency Department. He was determined to have a right subtrochanteric femur fracture. He was [place] [address] OPERATIVE REPORT Name: CHACHO CORMIER IV Room: [address] IN [facility].#: [id number] Admission: 07/20/18 Attend Phys: Jesus Gonzalez MD Discharge: Date of : 47 Report #: [id number] therefore recommended that he undergo open reduction and internal fixation of his right femur. Therefore, the risks, benefits, treatment options, alternatives, and indications were discussed with the patient. Risks included but not limited to damage to surrounding neurovascular structures, continued pain, continued bleeding, wound dehiscence, infection, need for repeat surgery, nonunion, malunion, leg length discrepancy, leg rotation discrepancy, DVT, PE, as well as inherent complications of anesthesia. The patient assumed the risks and wished to proceed with surgery. DESCRIPTION OF PROCEDURE: The patient was seen in the preoperative holding area where consent was obtained and signed, and the operative site was marked and initialed. The patient was transported back to the operative suite, where he was given the benefit of general endotracheal anesthetic. He was then placed onto the Lacarne fracture table and the right lower extremity was placed into a well-padded boot and secured into the leg shelley. The left lower extremity was placed into the nonoperative leg shelley and held in a flexed, abducted and externally rotated position to allow C-arm visualization. This was well-padded and with protection of the peroneal nerve. Closed reduction maneuvers were performed on the traction table and they were confirmed with C-arm. Next, the leg was sterilely prepped utilizing ChloraPrep x 2 and then draped in normal sterile fashion. A timeout was then had, indicating appropriate patient, procedure to be performed, operative site, preoperative antibiotics and operating surgeon. All in attendance were in agreeance. Surgery began with identifying the levels of the greater trochanter, lesser trochanter and angulation of the femur utilizing C-arm. Then, an approximate 10 cm incision was made directly over the fracture site. A 10 blade scalpel was made to incise the skin down to subcutaneous tissue and then a deep knife was utilized to incise the IT band as well as heads of the IT band. At this point, the vastus lateralis muscle had been disrupted secondary to the fracture and the fracture hematoma was encountered. Fracture hematoma was then evacuated and the bone ends were identified and thoroughly cleared of all periosteum and muscle. Reduction attempts were utilized, utilizing a bone hook and 2 [id number] clamps. When adequate fracture reduction was obtained, we visualized on C-arm. Next, attention was taken back to the superior part of the femur where an approximate 3 cm incision was made approximately 2 cm superior to the greater trochanter. Incision was made through skin and subcutaneous tissue down to the level of the tensor fascia florence, in which fascia was incised utilizing a deep knife. Then, the fibers of the gluteus medius were split in line with finger dissection. The greater trochanter was then palpated and starting point was identified with a starting guidewire to be at the most superior medial portion of the greater trochanter and at the anterior one-third, two-third junction of the greater trochanter. This was visualized to be in appropriate position utilizing C-arm. Then guidewire was advanced utilizing the guide pin party bus driver to the level of the trochanter in appropriate trajectory. Next, opening reamer was then utilized and taken down to the level of the lesser trochanter. Next a guidewire was then inserted and taken all the way to the superior pole of the [place] [address] [address] OPERATIVE REPORT Name: CASACESIAKACIE Merino IV Room: [address] IN [facility].#: [id number] Admission: 07/20/18 Attend Phys: Jesus Gonzalez MD Discharge: Date of : 47 Report #: [id number] patella. This measured to be mm. Next, a size 11 reamer was then utilized and taken to the end of the guidewire. Followed by a 13 mm reamer. Next, the 125 angled mm x 11 diameter long gamma nail was then selected and inserted into the right femur and taken down to the appropriate position with the lag screw tract just in the inferior aspect of the femoral neck. Next, the 2:1 sleeve was placed into appropriate position in the positioning handle and was taken to the level of the bone, which passed through our open incision, it was able to be directly visualized abutting bone. The guidewire was then inserted and deemed to be in appropriate position in the inferior portion of the femoral neck on the AP and in the central portion of the femoral neck on the lateral. This was confirmed utilizing C-arm. This was measured to be 90 mm. Next, the reamer was utilized to ream over the guidewire down to the level of the threads and this was removed and then a 95 mm screw was then selected and placed over the guidewire and driven into appropriate position that was confirmed on C-arm. This was taken to within 5 mm of subchondral bone and deemed to have adequate bite and it was visualized on C-arm to not penetrate the femoral head. Next, the superior lag screw was locked into position, utilizing the locking screw and then the Aiming arm assembly was removed. Next, attention was then directed to the inferior aspect of the nail, which was just at the superior pole of the patella, where perfect circles were obtained utilizing C-arm. The inferior oblong hole was first selected and a 15 blade scalpel was utilized to incise the skin down through subcutaneous tissue and IT band to the level of the bone. Bone was cleaned of all muscle, utilizing a hemostat and then the appropriate sized drill bit was utilized to obtain perfect circles and drilled through the oblong hole in the dynamic position. This was measured to be a size 50 screw and then a size 50 screw was then subsequently inserted into the hole and deemed to have adequate bite and confirmed to be in appropriate position on C-arm. Next, the static hole was identified and incision was made utilizing a #15 blade scalpel through skin and subcutaneous tissue down to the level of the IT band. IT band was incised down to the bone. Hemostat was utilized and debride almost slough of the bone. Then the appropriate sized drill bit was utilized to obtain perfect circles and drilled through bicortically. Depth gauge was utilized to determine length of 45 mm. Then, 45 mm screw was inserted and deemed to be in appropriate position with adequate bite on C-arm. The patient's rotation was then assessed utilizing superior pole of the patella as well as lesser trochanter and deemed to be in appropriate alignment as well as utilizing the cortical reads. Final C-arm images were taken, the entire length of the nail on AP and lateral. Then, the wounds were thoroughly irrigated with normal saline and 0 Vicryl was utilized to approximate the vastus lateralis fascia and then to approximate the IT band, both the middle and proximal incisions. Then, 2-0 Vicryl was utilized in simple inverted interrupted fashion to approximate the skin and then a running Stratafix was utilized in the proximal middle incisions to approximate the skin and 3-0 nylon was utilized in simple interrupted fashion on the two distal incisions over the distal locking screws. All needle and sponge counts were correct x 2[place] [address] OPERATIVE REPORT Name: CHACHO CORMIER IV Room: [address] IN [facility]#: [id number] Admission: 07/20/18 Attend Phys: Jesus Gonzalez MD Discharge: Date of : 47 Report #: [id number] Anesthesia was then reversed and the patient was transferred back to PACU in normal stable condition. <ELECTRONICALLY SIGNED> By: Abelino Bahena DO 07/22/18 1118 [id number] Bahena DO /nt
--- NOTE | 2018-07-22 14:53 | NUR ---
RIGHT BASILIC VESSEL ACCESSED FOR 5 NIGERIEN TRIPLE LUMEN PICC. LINE PRE-TRIMMED TO 35 CM AND ADVANCED TO THE ZERO LAUREN WITH NO RESISTANCE MET. UPPER ARM CIRCUMFERENCE ABOVE INSERTION SITE= 8 1/2". SHERLOCK MAGNET AND 3CG CONFIRMATION OF TIP TERMINATION AT THE CAVOATRIAL JUNCTION. GUIDEWIRE REMOVED, LINE FLUSHED AND INSERTION SITE DRESSED. REPORT GIVEN TO RICHI JONES.
--- NOTE | 2018-07-22 15:28 | NUR ---
SPOKE WITH THOM FROM [facility] THIS MORNING, SHE CONFIRMS PT WAS ON HOSPICE SERVICE PRIOR TO ADMISSION. THEY WILL CONTINUE TO FOLLOW THRU OUT HIS HOSPITAL STAY AND CAN RESUME HOSPICE CARE AT DISCHARGE. CALLED AND SPOKE WITH DTFrancisco ROSA ([phone]). PT LIVES IN HER BASEMENT, HE IS NORMALLY ALERT AND ORIENTED, CAN GET HIMSELF TO THE BATHROOM. DTR GIVES HIM HIS TUBE FEEDINGS, LEATHER PARTS MATCHER HELPS HIM WITH BATHING. DISCHARGE NEEDS UNKNOWN AT THIS TIME-PT WAS WALKING PRIOR TO THIS FALL. IF PT IS ABLE TO TOLERATE PHYSICAL THERAPY HE MIGHT QUALIFY FOR SNF. DEPENDING ON HOW PT DOES, DTR MAY OR MAY NOT BE ABLE TO CONTINUE TO CARE FOR PT IN HER HOME. CASE MGT WILL CONTINUE TO FOLLOW.
--- NOTE | 2018-07-22 18:10 | NUR ---
LEVO AT 3 MCG DILTIAZEM AT 10 AN HOUR. PATIENT MORE ALERT. DENIES PAIN OR SOA.
[2018-07-23] VITALS (59 sets, daily range): BP systolic 82–125; BP diastolic 30–76
[2018-07-23 05:12] LABS: HEMATOCRIT 24.8 % (42.0-52.0); HEMOGLOBIN 8.6 gm/dL (14.0-18.0); MCH 31.9 pg (26.0-34.0); MCHC 34.6 g/dL (28.0-37.0); MCV 92.2 fL (80.0-100.0); MPV 8.9 fl. (7.2-11.1); NUCLEATED RBCS 0 /100WBC; PLATELET COUNT* 125 thou/uL (150-400); RBC 2.69 mil/uL (4.50-6.00); RDW-CV 15.7 % (10.5-14.5); WBC 7.5 thou/uL (4.0-11.0)
[2018-07-23 05:23] LABS: CALCIUM 7.2 mg/dL (8.5-10.1); CREATININE 0.9 mg/dL (0.6-1.3); POTASSIUM 4.4 mmol/L (3.5-5.1)
--- NOTE | 2018-07-23 06:26 | NUR ---
ASSUMED CARE AT 1910H. PT ON HIGH FLOW CANNULA AT 10LPM. PT STABLE WITH SATURATION AT 90 TO 96%. NO BLEEDING NOTED PT IS ALERT AND ORIENTED.STILL ON LEVOPHED AND CARDIAZEM DRIP. PT SOMETIMES REFUSED TO TURN.
[2018-07-23 06:39] LABS: ABSOLUTE LYMPHOCYTES 0.5 thou/uL (0.8-5.3); ABSOLUTE MONOCYTES 0.2 thou/uL (0.0-1.2); ABSOLUTE NEUTROPHILS 6.8 thou/uL (1.6-8.1); PLATELET ESTIMATE DECREASED
[2018-07-23 06:40] LABS: ANISOCYTOSIS 1+; POIKILOCYTOSIS 1+
--- NOTE | 2018-07-23 10:04 | CON ---
[address] [address] CONSULTATION Name: CASACHACHO MORENO IV Room: [address] IN M.R.#: [id number] Admission: 07/20/18 Attend Phys: Jesus Gonzalez MD Discharge: Date of : 49 Report #: [id number] THIS REPORT FOR: //name// CC: Jesus AMOR REQUESTING PHYSICIAN: Dr. Landers. REASON FOR CONSULTATION: Hypoxemia, increased O2 needs. DISCUSSION: The patient is a 73-year-old man who was admitted to [facility] several days ago. He had sustained a fractured right femur. He has a history of head and neck cancer and a chronic PEG tube in place. He has been on hospice care. He apparently had fallen. When he was evaluated in the ED, he was found to have a fractured hip. He was taken to the OR on 07/20/2018. He returned to the Intensive Care Unit. He initially had been on a nasal cannula. He had increased O2 needs overnight. He has also had some blood pressure issues. At times, he is very tachycardic. He had received pain medication just prior to my seeing him this morning, so he was unable to really provide much history on his own. Old notes here at [facility], which are limited indicate to believe that his care elsewhere, which I believe is [facility]. 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 Does have a PEG tube and has issues handling his secretions. It is not clear exactly what his home medications have been. There are notes of atorvastatin and Excedrin. PAST MEDICAL HISTORY: With limited records we have here, the past medical history is as noted above. He has a head and neck cancer, which reportedly is metastatic, atrial fibrillation, dysphagia, now with PEG tube in place, COPD (severity unknown). SOCIAL HISTORY: Notes indicate he quit smoking a year ago. Employment unknown. He is on hospice care. REVIEW OF SYSTEMS: Unable to obtain with any reliability given his condition. FAMILY HISTORY: Unable to obtain from the patient given his condition. PHYSICAL EXAMINATION: GENERAL APPEARANCE: Chronically ill-appearing man. He is in bed, sleeping. He had just recently received some intravenous pain medication. He was quite lethargic. He will open his eyes. He does shake his head when asked if he is having pain. His O2 going via nasal cannula, though he prefers to have it in his mouth. He does have deformities and surgical [place] [address] CONSULTATION Name: CHACHO CORMIER IV Room: [address] IN [facility]#: [id number] Admission: 07/20/18 Attend Phys: Jesus Gonzalez MD Discharge: Date of : 47 Report #: [id number] side of his neck area. No supraclavicular adenopathy. HEART: Tones distant, tachycardic. No S3 is heard. LUNGS: Sounds are somewhat coarse. There is some mild decrease in breath sounds on the left. No subcutaneous emphysema. Chest does not appear tender with palpation. ABDOMEN: Soft. PEG tube in place. He does have some mild edema noted. Aparicio catheter in place. He has a bandage present over the right femur area. SKIN: Turgor fair. NEUROLOGIC: He is arousable, following some simple commands, but quite lethargic. LABORATORY AND X-RAY FINDINGS: On his chemistry yesterday, BUN 29, creatinine 0.9, potassium 4.9. Calcium was 6.9. White blood cell count 7900. Hemoglobin this morning 9.6. It did drop to 6.5 after admission. He did receive a transfusion. Platelets are 121,000. MRSA screen was positive. Chest x-rays were reviewed. On this morning's film, he has had volume loss. There is some shift of the mediastinum to the left. On chest film done on admission, which was on 07/20/2018, did have some mild elevation of the left hemidiaphragm versus a small pleural effusion with prominent interstitial markings. He did have a noncontrast CT chest done on 07/20/2018. He had marked emphysematous changes bilaterally. On the left side, he had marked changes of bronchiectasis, pulmonary nodule, left upper lobe; some other nodularity noted with cavitary changes. Unknown if infectious versus malignant process and adrenal masses noted; lesions in the liver, which may be cysts versus metastatic disease. IMPRESSION: 1. Hypoxic respiratory failure. He has volume loss on the left side. With changes already noted with bronchiectasis, most likely related to a mucous plugging, except has underlying pneumonia. Given his debilitated state and ongoing dysphagia issues, he is certainly at risk for aspiration pneumonia. 2. Chronic obstructive pulmonary disease, severity unknown. 3. Metastatic head and neck cancer. Details not clear. He is on hospice care at home. 4. Status post repair right femur fracture. 5. Anemia, most likely from blood loss, status post transfusion. 6. History of atrial fibrillation. 7. Overall prognosis appears extremely poor. He was already on hospice care at home. RECOMMENDATIONS: 1. Not a candidate for bronchoscopy given his condition and essentially metastatic disease. 2. We will start guaifenesin via his PEG tube and some albuterol syrup. 3. Short course of IV steroids as well as broaden out antibiotics. 4. O2 as needed to keep saturations 90% [place] [address] CONSULTATION Name: CASACHACHO MORENO IV Room: [address] IN .R.#: [id number] Admission: 07/20/18 Attend Phys: Jesus Gonzalez MD Discharge: Date of : 47 Report #: [id number] 5. Adequate pain control. 6. Hope to stabilize and resume hospice care. <ELECTRONICALLY SIGNED> By: Muriel Fish MD 07/23/18 1004 1117 Aimee Fish MD /nt
--- NOTE | 2018-07-23 11:25 | NUR ---
0730 ASSUMED CARE OF PATIENT. PLEASE SEE DOCUMENTED ASSESSMENT. PT IS ATRIAL FIB WHICH IS RAPID WHEN IN PAIN OR ACTIVE. PATIENT HAS DISCONTINUED HIS PERIPHERAL IV.
--- NOTE | 2018-07-23 18:25 | NUR ---
PATIENT WITH PROGRESSION TOWARDS GOALS. PAIN CONTROLLED WITH ALTERNATIN IV MEDICATION AND HYDROCODONE. TOLERATES TUBE FEEDING. TITRATED OFF OF LEVOPHED THIS EVENING. REMAINS ON 10LPM HIGH FLOW CANNULA. DAUGHTER HAS CALLED.
[2018-07-24] VITALS (19 sets, daily range): BP systolic 85–123; BP diastolic 40–76
[2018-07-24 05:12] LABS: HEMATOCRIT 25.4 % (42.0-52.0); HEMOGLOBIN 8.6 gm/dL (14.0-18.0)
--- NOTE | 2018-07-24 06:19 | NUR ---
ASSUMED CARE AT 1910H. ON HIGH FLOW CANNULA AT 10LPM AND WITH CARDIZEM DRIP. NO DISTRESS NOTED AND COMPLAIN OF PAIN. PT IS SOMETIMES FORGETFUL.
--- NOTE | 2018-07-24 16:52 | NUR ---
07/24 Days: PRN pain med's x3. Tolerating home bolus feeds of Jevity. Up to chair with PT this afternoon, tolerated well, actually improved HR and O2 saturations, up for 4 hours. Continued Cardizem gtt, attempting to wean. Otherwise unremarkable shift thus far
[2018-07-25] VITALS (12 sets, daily range): BP systolic 97–134; BP diastolic 41–76
[2018-07-25 05:01] LABS: HEMOGLOBIN 8.2 gm/dL (14.0-18.0); MCH 31.9 pg (26.0-34.0); MCHC 34.2 g/dL (28.0-37.0); MCV 93.2 fL (80.0-100.0); MPV 9.4 fl. (7.2-11.1); RBC 2.58 mil/uL (4.50-6.00); RDW-CV 15.5 % (10.5-14.5); WBC 6.1 thou/uL (4.0-11.0)
[2018-07-25 05:19] LABS: CALCIUM 7.2 mg/dL (8.5-10.1); CREATININE 0.9 mg/dL (0.6-1.3); POTASSIUM 4.3 mmol/L (3.5-5.1)
--- NOTE | 2018-07-25 06:53 | NUR ---
ASSESSMENT CHARTED. PATIENT REMAINED ON CARDIZEM GTT, TITRATED DOWN TO 9. PATIENT SLEPT MAJORITY OF SHIFT AND REFUSED TO TURN FOR NURSING STAFF. HANDED PATIENT OFF TO TOREY JONES AT 0230 TO RECEIVE NEW ADMISSION.
--- NOTE | 2018-07-25 09:51 | NUR ---
PATIENT ALERT CO PAIN IN RT THIGH. SOME EDEMA NOTED. PEG TUBE PATENT TOLERATING FEEDING WELL.
--- NOTE | 2018-07-25 17:25 | NUR ---
PATIENT MORE RELAXED AFTER EXCERCIZE. DENIES DISTRESS.
[2018-07-26] VITALS (25 sets, daily range): BP systolic 116–150; BP diastolic 38–82
--- NOTE | 2018-07-26 05:33 | NUR ---
PROGRESSING TOWARDS GOALS, REMAINS OFF LEVOPHED AND CARDIZEM GTT'S, SA/ST WITH PAC'S TRACING CAR DEALER, HR HAS INCREASED UP TO 170'S NONSUBSTAINED. HYDROCODONE 5/325MG X2 PO GIVEN PRN ORDERED AND HELPFUL FOR RIGHT HIP AND THIGH PAIN, REFUSING REPOSITIONING, EDUCATED IMPORTANCE REPOSITIONING TO PREVENT SKIN BREAKDOWN AND MAINTAIN SKIN INTEGRITY. TOLERATING SCHEDULED TUBEFEEDING AND FREE H2O BOLUSES, EMOTIONAL SUPPORT PROVIDED. CALL LIGHT REMAINS IN REACH.
--- NOTE | 2018-07-26 11:46 | NUR ---
PATIENT CONTINUES TO BE AWAKE AND ALERT, PLEASANT AND COOPERATIVE WITH CARES. C/O PAIN THAT IS MOSTLY IN HIS RIGHT FEMUR. PAIN MEDICATIONS HELP. DENIES SOB, HOWEVER LUNGS ARE VERY DIMINESHED. CONTINUES ON 8L HIFLOW NC. PATIENT OFF OF CARDIZEM, HR CONTINUES TO BUMP UP TO 170'S-180'S BUT COME RIGHT BACK DOWN. PATIENT IS ASYMPTOMATIC WHEN IT HAPPENS. PATIENT REFUSING TURNS DESPITE EFFORTS TO EDUCATE HIM ON BED SORES. PATIENT ABLE TO MAKE NEEDS KNOWN. NO OTHER CONCERNS AT THIS TIME. WILL CONTINUE TO MONITOR AND CARE PER PLAN OF CARE.
--- NOTE | 2018-07-26 19:32 | NUR ---
VSS, ASSUMED CARE OF PT FROM ICU, PLACE PT ON MONIOTR PT IS TRACING AFIB, PT IS ON 5L NC AND IS A&O3, PT IS A Q2 TURN BUT REFUSES TO TURN, I HAVE PROVITED EDU WHY PT NEEDS TO TURN. FALL PRECAUTIONS IN PLACE AND CALL LIGHT IN REACH, WILL FOLLOW WITH PLAN OF CARE.
[2018-07-27] VITALS: BP 125/63
[2018-07-27 04:00] VITALS: BP 120/67
--- NOTE | 2018-07-27 06:00 | NUR ---
PT A+O. MUFFLED SPEECH BUT ABLE TO UNDERSTAND. PAIN MEDS GIVEN - EFFECTIVE FOR ORDERED AMOUNT OF TIME THEN PT WOULD NEED MORE. HR UNSTABLE WITH ANY TYPE OF MOVEMENT. PT DENIED CP ALL SHIFT. WAS ABLE TO GET SOME REST. RT LEG DRESSING DRY AND INTACT. SUPPORTED LEGS WITH PILLOWS Q 2 HR W TURNS. CALL LIGHT IN REACH. USED APPROPRIATELY. HOURLY ROUNDING AND ROOM ACCROSS FROM NURSES STATION FOR SAFETY.
[2018-07-27 08:23] VITALS: BP 110/71
[2018-07-27] MEDS ORDERED: LOPRESSOR25 PER TUBE (11:02)
[2018-07-27] MEDS ORDERED: NEURONTIN250 MG/5 M PER TUBE (11:04)
[2018-07-27 11:51] VITALS: BP 126/64
--- NOTE | 2018-07-27 12:00 | NUR ---
VSS, ASSUMED CARE IN THE AM, ASSESSMENT PERFORMED AND CHARTED, FALL PRECAUTIONS IN PLACE AND CALL LIGHT IN REACH, PT IS A&O4 AND ON 8-9 L HIGH FLOW, PT WAS AFIB ON THE MONITOR BUT NOW IS M/S, PT IS UP WITH ONE TO CHAIR HIS GOAL IS TO WORK WITH PT/OT AND IMPROVE BREATHING, PT STATES PAIN IN RIGHT LEG, WERE HIS HAS SURGERY TO FIX FRACTURE, HIS ORDERS IS ACITIVITY TOLERATED, SCD FOOT PUMPS IN PLACE AND HE RATES PAIN 6 OUT OF 10 WILL FOLLOW WITH PLAN OF CARE,
[2018-07-27 14:19] LABS: HEMATOCRIT 30.8 % (42.0-52.0); MCH 31.1 pg (26.0-34.0); MCHC 32.5 g/dL (28.0-37.0); MCV 95.8 fL (80.0-100.0); MPV 8.8 fl. (7.2-11.1); NUCLEATED RBCS 0 /100WBC; RBC 3.22 mil/uL (4.50-6.00); RDW-CV 16.2 % (10.5-14.5); WBC 8.1 thou/uL (4.0-11.0)
[2018-07-27 14:20] LABS: PLATELET COUNT* 246 thou/uL (150-400)
[2018-07-27 14:28] LABS: CALCIUM 7.1 mg/dL (8.5-10.1); MAGNESIUM 2.5 mg/dL (1.8-2.4); PHOSPHORUS* 2.2 mg/dL (2.5-4.9); POTASSIUM 4.7 mmol/L (3.5-5.1); TOTAL BILIRUBIN 0.6 mg/dL (<0.1-1.0); TOTAL PROTEIN 5.1 g/dL (6.4-8.2)
[2018-07-27 14:46] LABS: ABSOLUTE EOSINOPHILS 0.6 thou/uL (0.0-0.7); ABSOLUTE LYMPHOCYTES 1.6 thou/uL (0.8-5.3); ABSOLUTE MONOCYTES 0.3 thou/uL (0.0-1.2); ABSOLUTE NEUTROPHILS 5.6 thou/uL (1.6-8.1); PLATELET ESTIMATE ADEQUATE
--- NOTE | 2018-07-27 15:22 | NUR ---
SPOKE WITH PT AND WITH NALINI/SHELLEY OVER THE PHONE RE: [place] PLANNING. PT WILL NEED SNF AT [place], DTR HOPES HE WILL IMPROVE ENOUGH TO RETURN HOME TO HER HOME AND CONTINUE TO RESIDE IN HER WALK OUT BASEMENT AND GO BACK ON [facility]. PT USES A WALKER PRIOR TO ADMIT. HE STATED HIS PAIN WAS TOO MUCH TO MOVE THIS AM, NURSE MADE AWARE AND MEDS WERE GIVEN. PT WAS ABLE TO WORK WITH THERAPY AND IS UP IN CHAIR. DTR STATED SHE WAS FAMILIAR WITH SOME SURROUNDING SNFS BUT DIDN'T HAVE A PREFERENCE, JUST WANTED HIM TO HAVE SOME THERAPY. DISCUSSED OPTIONS AND REFERRAL FAXED TO [facility]. SPOKE WITH RIKKI/JENNIFER, SHE WOULD LIKE UPDATED THERAPY NOTES AND UPDATE ON PT'S O2 NEEDS TOMORROW. WILL CONSIDER PT FOR SNF BUT THEY WILL HAVE TO GET INSURANCE AUTH WILL FOLLOW
--- NOTE | 2018-07-27 16:18 | NUR ---
BHUPINDER RUBIO IN PLACE AND IS DRAINING, HIS GOAL IS TO HAVE IT REMOVED RAUL
[2018-07-27 20:00] VITALS: BP 140/84
[2018-07-28] VITALS: BP 122/54
[2018-07-28 03:45] LABS: HEMATOCRIT 25.2 % (42.0-52.0); HEMOGLOBIN 8.4 gm/dL (14.0-18.0); MCH 31.8 pg (26.0-34.0); MCHC 33.5 g/dL (28.0-37.0); MCV 95.1 fL (80.0-100.0); MPV 8.9 fl. (7.2-11.1); RBC 2.65 mil/uL (4.50-6.00); RDW-CV 16.2 % (10.5-14.5); WBC 5.3 thou/uL (4.0-11.0)
--- NOTE | 2018-07-28 07:07 | NUR ---
PT SLEPT THROUGH THE NIGHT. OXY PER PEG TUBE ADEQUATE PER RIGHT HIP INCISION PAIN. DRESSING DRY AND INTACT. PT REFUSED TURNS @ TIMES. O RESIDUAL WITH PEG TUBE FEEDINGS.
[2018-07-28 08:00] VITALS: BP 129/55
--- NOTE | 2018-07-28 08:00 | NUR ---
VSS. PT REFUSING ROE CATHETER TO BE REMOVED. PT SETTLED BACK IN BED. REPORT GIVEN TO RENETTA JONES.
--- NOTE | 2018-07-28 09:45 | NUR ---
UPDATED THERAPY NOTES FAXED TO JENNIFER
--- NOTE | 2018-07-28 10:08 | PATH ---
[facility] [address] [place] [address] PATHOLOGY RPT PROCEDURE Name: JOVANI CORMIER IV Room: [address] IN ..#: [id number] Admission: 07/20/18 Date of : 49 Discharge: Report #: [id number] Path Case #: [id number] [facility] Accession Number: [id number] . 01 Material submitted: . hip - RIGHT HIP REAMINGS. Modifiers: right . 01 Clinical history: . Preop DX: Right hip fracture Postop DX: Right femur fracture, subtrochinteric fracture . 02 Diagnosis: Bone, "right hip reamings": - Portions of unremarkable bone and skeletal muscle. - Portions of bone marrow with trilineage hematopoiesis. (STAN:aby; 07/22/2018) DEIRDRE/07/22/2018 . 02 Electronically signed: . Vern Eaton MD, Pathologist NPI- [id number] . 01 Gross description: . Received in formalin labeled "Jovani Cormier IV, right hip reamings," is a 2.4 x 2.2 x 0.3 cm aggregate of granular, reddy-brown bone fragments. The specimen is submitted entirely in cassette A1, following decalcification. (DAC; 07/21/2018) XDC/XDC . 02 Pathologist provided ICD-10: S72.91XA . 02 CPT . 505248, 604289 Specimen Comment: A courtesy copy of this report has been sent to Specimen Comment: [phone], , . Specimen Comment: Report sent to ,DR ORELLANA / DR AMOR Specimen Comment: A duplicate report has been generated due to demographic updates. Performed at: [address], [place], [place] [id number] MD Chris Vigil MD Phone: [phone] Performed at: 02 [facility] [address], [place], [place] [id number] MD Rory Everett MD Phone: [phone]
[2018-07-28 16:44] VITALS: BP 123/53
--- NOTE | 2018-07-28 16:59 | NUR ---
RECEIVED REPORT FROM QUYNH JONES. ASSUMED CARE OF PT AROUND 0730. PT A&OX4, SPEECH SLURRED DUE TO SCAR TISSUE IN MOUTH (H/O MOUTH CANCER). PT M/S STATUS. AM ASSESSMENT AND VITALS COMPPLETED CHARTED. RIGHT UPPER ARM TRIPLE LUMEN PICC INTACT, LOCKED. PT HAS REPORTED RIGHT LEG/THIGH PAIN THROUGHOUT THE DAY THAT HAS BEEN MANAGED WITH PO AND TOPICAL PAIN MEDICATION, REPOSITIONING, AND REST - PARTIAL PAIN RELIEF. PT TOLERATING PEG TUBE FEEDS. MEDS PER TUBE. PT ABLE TO GET UP TO BEDSIDE CHAIR THIS SHIFT WITH P.T. PT CONGESTED - FELT SOB AND WAS ANXIOUS; RESPIRATORY THERPAY TO BEDSIDE - PT NOW ON HEATED HIGH FLOW OXYGEN. TOLERATING. BEDSIDE SUCTION IN PLACE. DAUGHTER VISITED THIS AFTERNOON. DRESSINGS TO RIGHT LEG REMAIN INTACT. PT REFUSING SOME TURNS - PT EDUCATED ON IMPORTANCE OF TURNING TO PRESERVE SKIN INTEGRITY. PT COMMUNICATES UNDERSTANDING. ROE IN PLACE TO DD, URINE YELLOW - TO BE REMOVED, BUT PT REQUESTING IT STAY. WILL MESSAGE PHYSICIAN. PT CURRENTLY RESTING IN BEDSIDE CHAIR. FALL PRECAUTIONS IN PLACE. CALL LIGHT IS WITHIN REACH. HOURLY ROUNDING PERFORMED. WCTM.
[2018-07-28 20:34] VITALS: BP 127/47
[2018-07-29 00:20] VITALS: BP 129/45
--- NOTE | 2018-07-29 07:01 | NUR ---
RECEIVED REPORT AND ASSUMED CARE AT 1900. VSS. PT REPORTS PAIN, PRN MEDICATION ADMIN PER ORDERS. ASSESSMENT COMPLETED CHARTED. PT UP WITH ASSIST, ON 8L HF NC. POSITION CHANGE ENCOURAGED, PT REFUSING. RDUCATED ON RISK FOR PRESSURE ULCER IF NOT OFF LOADING. PT VERBALIZED UNDERSTANDING, STILL REFUSING TO CHANGE POSITION.BED LOCKED IN LOWEST POSITON, CALL LIGHT WITHIN REACH, BED ALARM ON. HOURLY ROUNDING COMPELTED AND ALL NEEDS MET
[2018-07-29 07:45] VITALS: BP 119/51
[2018-07-29] MEDS ORDERED: LIDOPATCH1 EACH TOP (10:03)
[2018-07-29] MEDS ORDERED: CEFDINIR300 MG PER TUBE (10:03)
[2018-07-29] MEDS ORDERED: CELEBREX 200 M200 M1 PO (10:03)
[2018-07-29] MEDS ORDERED: SENNA8.6 MG PERTUBE (10:03)
[2018-07-29] MEDS ORDERED: DOCUSATE S100 MG/10 PERTUBE (10:03)
[2018-07-29] MEDS ORDERED: ZYVOX600 MG PER TUBE (10:03)
[2018-07-29] MEDS ORDERED: ACETAMINOPHEN325 M1 PO (10:03)
[2018-07-29] MEDS ORDERED: ROBITUSSIN100 MG/53 PO (10:03)
--- NOTE | 2018-07-29 11:16 | NUR ---
ORDERS NOTED FOR DC TO SNF. CALL TO [facility], STILL AWAITING INS AUTH. DISCUSSED WITH NURSE AND RT, PT IS AT 5L O2 NOW. AWAIT CALL BACK FROM [facility]. ORDERS FAXED TO THEM
[2018-07-29 12:00] VITALS: BP 97/47
[2018-07-29 14:00] VITALS: BP 110/50
[2018-07-29 14:35] VITALS: BP 97/47
[2018-07-29] MEDS ORDERED: OXYCODONE HCL 55 MG PO (14:48)
--- NOTE | 2018-07-29 20:24 | NUR ---
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 PT ABLE TO COMMUNICATE NEEDS WITH SOME EFFORT.PT HAD BHUPINDER REMOVED THIS AM, UP TO THE CHAIR WITH PT. PT ON 6L NC. DOES TAKE SOME TIME TO RECOVER WITH ACTIVITY. PT HAS PEG TUBE, FEEDINGS DONE AT 1130 AND 1600, 1 CAN OF JEVITY 1.5 WITH 200 ML FLUID BOLUS. PT REPORTS GETTING FULL DURING THE FEEDING. HAS SEVERAL SMALL LOOSE STOOLS, SUPOSITORY GIVEN. PTS VSS, M/S STATUS. PT USES CALL LIGHT APPROPRILATY. ORDERS RECIEVED TO DC PT TO [facility]. REPORT CALLED AND PT DISCHARGED VIA AMBULANCE AT APPROX 1750.
== END 2018-07-29 18:10 | DRG 480 ==
LOC: M.ERS 00:26 → M.2W 01:57 → M.ICU 01:57 → M.TBA-ER 01:57 → M.2W 02:53 → M.ICU 15:57 → M.2W 07-26 18:35
PROVIDERS: Emergency Medicine; Family Medicine; Internal Medicine; Internal Medicine Critical Care Medicine; Orthopaedic Surgery; ADMIT Internal Medicine
PROC: 0QS604Z Reposition Right Upper Femur with Internal Fixation Device, Open Approach (ICD-10-PCS; principal; 2018-07-20)
PROC: 30233N1 Transfusion of Nonautologous Red Blood Cells into Peripheral Vein, Percutaneous Approach (ICD-10-PCS; principal; 2018-07-20)
PROC: 02HV33Z Insertion of Infusion Device into Superior Vena Cava, Percutaneous Approach (ICD-10-PCS; 2018-07-22)
DX: S72.21XA Displaced subtrochanteric fracture of right femur, initial encounter for closed fracture (principal); J69.0 Pneumonitis due to inhalation of food and vomit; E43 Unspecified severe protein-calorie malnutrition; J96.01 Acute respiratory failure with hypoxia; D68.59 Other primary thrombophilia; D62 Acute posthemorrhagic anemia; J44.0 Chronic obstructive pulmonary disease with (acute) lower respiratory infection; I10 Essential (primary) hypertension; I49.1 Atrial premature depolarization; R13.10 Dysphagia, unspecified; I95.9 Hypotension, unspecified; I48.0 Paroxysmal atrial fibrillation; Z66 Do not resuscitate; Z85.51 Personal history of malignant neoplasm of bladder; Z85.048 Personal history of other malignant neoplasm of rectum, rectosigmoid junction, and anus; W01.0XXA Fall on same level from slipping, tripping and stumbling without subsequent striking against object, initial encounter; Y93.01 Activity, walking, marching and hiking; Y92.89 Other specified places as the place of occurrence of the external cause; Y99.8 Other external cause status; Z87.891 Personal history of nicotine dependence; Z68.23 Body mass index [BMI] 23.0-23.9, adult